=== PATIENT | male | born 1965 | race Caucasian/White ===

== ENCOUNTER 2017-05-01 09:10 | Emergency (ER) | payer OTHER ==
[~2017-05-01 09:10] MED LIST: PRI20 PO
[2017-05-01 10:19] LABS: BASOPHIL % 0.7 % (0-2); PLATELET COUNT 241 x10^3mcL (130-400)
[2017-05-01 10:25] LABS: RED CELL DISTRIBUTION WIDTH 14.9 % (11.5-14.5)
[2017-05-01 10:27] LABS: CALCIUM 8.5 mg/dL (8.5-10.1); CARBON DIOXIDE 29.3 mmol/L (21-32); CHLORIDE SERUM 104 mmol/L (98-107); GFR1 > 60 mL/min; GLUCOSE SERUM 99 mg/dL (74-106); POTASSIUM SERUM 4.4 mmol/L (3.5-5.1); SODIUM SERUM 134 mmol/L (136-145)
[2017-05-01 10:32] LABS: ALBUMIN 3.8 g/dL (3.4-5.0); ALKALINE PHOSPHATASE 67 U/L (46-116); ALT/SGPT 23 U/L (16-63); AST/SGOT 18 U/L (15-37); BILIRUBIN TOTAL 0.5 mg/dL (0.20-1.00); LIPASE 335 IU/L (73-393); TOTAL PROTEIN, SERUM 7.1 g/dL (6.4-8.2)
[2017-05-01 10:44] LABS: microscopic required? NO
[2017-05-01 11:05] LABS: UA SPECIFIC GRAVITY 1.015 (1.005-1.035); urine erythrocyte NEGATIVE (NEGATIVE)
[2017-05-01 12:36] VITALS: BP 128/71
== END 2017-05-01 12:36 | disposition home or self-care (01) ==
LOC: ED 09:10
PROVIDERS: Emergency Medicine
DX: M54.5 Low back pain (principal)
CPT/HCPCS: J1885; J2405

== ENCOUNTER 2017-11-28 13:01 | Emergency (ER) | payer OTHER ==
[~2017-11-28] VITALS: Ht 172.7 cm; Wt 87.1 kg
[2017-11-28 15:22] VITALS: BP 128/90
== END 2017-11-28 15:23 | disposition home or self-care (01) ==
LOC: ED 13:01
DX: S46.222A Laceration of muscle, fascia and tendon of other parts of biceps, left arm, initial encounter (principal); Z88.8 Allergy status to other drugs, medicaments and biological substances; X50.0XXA Overexertion from strenuous movement or load, initial encounter; Y93.89 Activity, other specified; Y92.89 Other specified places as the place of occurrence of the external cause; Y99.8 Other external cause status
CPT/HCPCS: J2270; Q0162

== ENCOUNTER 2018-01-31 12:50 | Emergency (ER) | payer OTHER ==
[~2018-01-31] VITALS: Ht 172.7 cm; Wt 84.4 kg
[2018-01-31 13:02] VITALS: Ht 172.7 cm; Wt 84.4 kg
[2018-01-31 14:41] VITALS: BP 120/86
== END 2018-01-31 14:41 | disposition home or self-care (01) ==
LOC: ED 12:50
DX: S63.601A Unspecified sprain of right thumb, initial encounter (principal); J45.909 Unspecified asthma, uncomplicated; Z91.011 Allergy to milk products; W01.0XXA Fall on same level from slipping, tripping and stumbling without subsequent striking against object, initial encounter; Y93.89 Activity, other specified; Y92.89 Other specified places as the place of occurrence of the external cause; Y99.8 Other external cause status
CPT/HCPCS: Q0092

== ENCOUNTER 2018-03-09 00:08 | Emergency (ER) | payer OTHER ==
[~2018-03-09] VITALS: Ht 172.7 cm; Wt 83.5 kg
[2018-03-09 00:14] VITALS: Ht 172.7 cm; Wt 83.5 kg
[2018-03-09 02:32] VITALS: BP 131/75
== END 2018-03-09 03:19 | disposition home or self-care (01) ==
LOC: ED 00:08
DX: M54.5 Low back pain (principal); J45.909 Unspecified asthma, uncomplicated; Z88.8 Allergy status to other drugs, medicaments and biological substances
CPT/HCPCS: J1885; J3010

== ENCOUNTER 2018-04-03 20:59 | Emergency (ER) | payer OTHER ==
[~2018-04-03] VITALS: Ht 172.7 cm; Wt 83.2 kg
[2018-04-03 21:33] VITALS: Ht 172.7 cm; Wt 83.2 kg
[2018-04-03 23:30] VITALS: BP 111/77
== END 2018-04-03 23:30 | disposition home or self-care (01) ==
LOC: ED 20:59
DX: G89.29 Other chronic pain (principal); M54.9 Dorsalgia, unspecified; J45.909 Unspecified asthma, uncomplicated; Z91.011 Allergy to milk products
CPT/HCPCS: J1885; Q0162

== ENCOUNTER 2020-10-18 09:50 | Emergency (ER) | payer OTHER ==
[~2020-10-18] VITALS: Ht 172.7 cm; Wt 84.8 kg
[2020-10-18 10:00] VITALS: Ht 172.7 cm; Wt 84.8 kg
[2020-10-18 10:30] LABS: BASOPHIL % 0.7 % (0.2-1.5); PLATELET COUNT 258 x10^3mcL (152-348)
[2020-10-18 10:31] LABS: RED CELL DISTRIBUTION WIDTH 14.9 % (12.1-16.2)
[2020-10-18 10:46] LABS: CALCIUM 8.8 mg/dL (8.5-10.1); CARBON DIOXIDE 27.8 mmol/L (21-32); CHLORIDE SERUM 102 mmol/L (98-107); GFR1 > 60 mL/min; GLUCOSE SERUM 101 mg/dL (74-106); POTASSIUM SERUM 4.1 mmol/L (3.5-5.1); SODIUM SERUM 136 mmol/L (136-145)
[2020-10-18 10:50] LABS: ALKALINE PHOSPHATASE 81 U/L (46-116); ALT/SGPT 51 U/L (16-63); AST/SGOT 26 U/L (15-37); BILIRUBIN TOTAL 0.52 mg/dL (0.20-1.00); LIPASE 98 IU/L (73-393); TOTAL PROTEIN, SERUM 7.7 g/dL (6.4-8.2)
[2020-10-18 12:51] VITALS: BP 140/78
== END 2020-10-18 12:51 | disposition home or self-care (01) ==
LOC: ED 09:50
PROVIDERS: Student in an Organized Health Care Education/Training Program
DX: K21.9 Gastro-esophageal reflux disease without esophagitis (principal); F10.129 Alcohol abuse with intoxication, unspecified; J45.909 Unspecified asthma, uncomplicated; Z91.011 Allergy to milk products

== ENCOUNTER 2020-11-21 15:54 | Emergency (ER) | payer OTHER ==
[~2020-11-21] VITALS: Ht 172.7 cm; Wt 81.6 kg
[2020-11-21 15:59] VITALS: Ht 172.7 cm; Wt 81.6 kg
[2020-11-21] MEDS ORDERED: IBU600 M2 PO (17:12)
[2020-11-21] MEDS ORDERED: ANTIBIOTIC O500 U/GM TOP (17:12)
[2020-11-21 17:32] VITALS: BP 135/89
== END 2020-11-21 17:32 | disposition home or self-care (01) ==
LOC: ED 15:54
DX: S51.812A Laceration without foreign body of left forearm, initial encounter (principal); Z98.890 Other specified postprocedural states; Z88.8 Allergy status to other drugs, medicaments and biological substances; W26.0XXA Contact with knife, initial encounter; Y93.89 Activity, other specified; Y92.89 Other specified places as the place of occurrence of the external cause; Y99.8 Other external cause status; J45.909 Unspecified asthma, uncomplicated
CPT/HCPCS: 90715; J2001